=== PATIENT | male | born 1985 | race Caucasian/White ===

== ENCOUNTER → 2018-03-07 10:22 | Outpatient (CLI) | payer OTHER ==
[~2018-03-07] VITALS: Ht 182.9 cm; Wt 252.3 kg
[2018-03-07 14:11] VITALS: Ht 182.9 cm; Wt 252.3 kg
== END | disposition home or self-care (01) ==
LOC: D.OPS 10:22 → EDBD 11:00
DX: Z02.71 Encounter for disability determination (principal); Z01.812 Encounter for preprocedural laboratory examination